=== PATIENT | male | born 1980 | race African-American/Black ===

== ENCOUNTER 2017-02-19 20:02 | Emergency (ER) | payer MEDICAID, OTHER ==
[~2017-02-19] VITALS: Ht 175.3 cm; Wt 72.6 kg
[2017-02-19] MEDS ORDERED: SODIUM CHLORIDE 0.9% 1,000 ML IVB ONE (20:32)
[2017-02-19 21:22] LABS: Urine Bilirubin Negative (Negative); Urine Blood Negative /uL (Negative); Urine Color Yellow (Yellow); Urine Glucose Normal (Normal); Urine Ketone Negative (Negative); Urine Mucus FEW (None Seen); Urine Nitrite Negative (Negative); Urine RBC <1 /hpf (0 - 3); Urine Urobilinogen Normal (Negative)
[2017-02-19 21:47] LABS: Basophils # (auto) 0.1 uL; Basophils % (auto) 1.4 % (0.0-2.0); Eosinophils # (auto) 0.5 uL; Eosinophils % (auto) 4.8 % (0.0-7.0); Hematocrit 42.7 % (41.0-53.0); Hemoglobin 13.8 g/dL (13.5-17.5); Lymphocytes # (auto) 2.3 uL; Mean Corpuscular Hemoglobin 30.2 pg (28.0-32.0); Mean Corpuscular Hgb Conc. 32.2 g/dL (32.0-36.0); Mean Corpuscular Volume 93.8 fL (80.0-100.0); Mean Platelet Volume 8.2 fL (6.9-10.8); Monocytes # (auto) 1.1 uL; Monocytes % (auto) 9.9 % (0.0-12.0); Neutrophils # (auto) 6.8 uL; Neutrophils % (auto) 62.9 % (37.0-80.0); Nucleated Red Blood Cells % 0.3 %; Platelet Count (auto) 210 10^3/uL (140-450); Red Cell Distribution Width 12.8 % (11.8-14.3); White Blood Cell 10.8 10^3/uL (4.4-10.8)
[2017-02-19 21:58] LABS: Albumin 3.5 g/dL (3.4-5.0); Alkaline Phosphatase 69 U/L (45-117); Anion Gap 9 (5-15); Aspartate Aminotransferase 18 U/L (15-37); BUN/Creatinine Ratio 15.9; Bilirubin, Total 0.6 mg/dL (0.2-1.0); Blood Urea Nitrogen 13 mg/dL (7-18); Carbon Dioxide 22 mmol/L (21-32); Chloride 111 mmol/L (98-107); GFR African American 135 mL/min; GFR Non-African American 112 mL/min; Glucose 78 mg/dL (74-106); Magnesium 2.5 mg/dL (1.6-2.6); Potassium 3.5 mmol/L (3.5-5.1); Sodium 142 mmol/L (136-145); Total Protein 6.7 g/dL (6.4-8.2)
[2017-02-19 22:28] LABS: Acetaminophen < 2.0 ug/mL (10-30); Salicylate < 1.7 mg/dL (2.8-20.0)
[2017-02-20 01:52] VITALS: BP 97/61
== END 2017-02-20 03:53 | disposition left against medical advice (07) ==
LOC: EDBD 20:02 → ER 20:17
DX: F32.9 Major depressive disorder, single episode, unspecified (principal); R45.851 Suicidal ideations; F12.10 Cannabis abuse, uncomplicated
CPT/HCPCS: 36415; 80053; 80307; 80320; 80329; 81001; 83735; 85025; 93005; 96360; 99285; J7030

== ENCOUNTER 2023-11-01 11:38 | Emergency (ER) | payer OTHER ==
[~2023-11-01] VITALS: Ht 180.3 cm; Wt 65.5 kg
[~2023-11-01 11:38] MED LIST: CYCL-837 PO; LIDO5DIS21 TOP; MELO7.5T7 PO
[2023-11-01 12:05] VITALS: BP 93/71; PULSE 95; RESP 14; O2SAT 98
== END 2023-11-01 12:58 | disposition home or self-care (01) ==
LOC: ER 11:38
DX: S64.02XA Injury of ulnar nerve at wrist and hand level of left arm, initial encounter (principal); F32.9 Major depressive disorder, single episode, unspecified; Z79.899 Other long term (current) drug therapy; X58.XXXA Exposure to other specified factors, initial encounter; Y93.89 Activity, other specified; Y92.89 Other specified places as the place of occurrence of the external cause; Y99.8 Other external cause status

== ENCOUNTER 2024-08-29 11:31 | Emergency (ER) | payer OTHER ==
[~2024-08-29] VITALS: Ht 180.3 cm; Wt 66.2 kg
[2024-08-29 12:14] VITALS: BP 97/62; PULSE 82; RESP 20; TEMP 97.6; O2SAT 98
--- NOTE | 2024-08-29 12:52 | ED.PDOC ---
History of Present Illness HPI Comments 43 y/o M, with PMHx of asthma presents to the ED for CC of s/p exposure. 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 Following exposure, patient endorses feeling short of breath. Patient denies nausea, vomiting, headache, epistaxis, or blurred vision. No other symptoms or modifying factors present at this time. Chief Complaint: Post Exposure Time Seen by MD: 12:45 Primary Care Provider: unknown Reviewed Notes: Nurses Notes, Medications, Allergies Allergies: Coded Allergies: NO KNOWN ALLERGIES (Unverified , 02/19/17) Home Meds Active Scripts Amoxicillin Trihydrate (Amoxicillin) 500 Mg Tab, 1 TAB PO TID for 7 Days, #21 TAB Prov:MARIJA KATZ MD 08/29/24 Prednisone (Prednisone) 10 Mg Tab, 10 MG PO BS for 7 Days, #7 MG Prov:MARIJA KATZ MD 08/29/24 Meloxicam (Meloxicam) 7.5 Mg Tab, 1 TAB PO DAILYP PRN for 30 Days, #30 TAB 0 Refills Prov:DEANA TOLEDO NP 11/01/23 Lidocaine (LIDODERM 5% TOPICAL PATCH) 1 Patch Ph, 1 PATCH TOP DAILY for 30 Days, #30 PATCH 0 Refills Prov:DEANA TOLEDO NP 09/07/23 Cyclobenzaprine Hcl (Cyclobenzaprine Hcl) 5 Mg Tab, 1 TAB PO QHSP PRN for 30 Days, #30 TAB 0 Refills Prov:DEANA TOLEDO NP 09/07/23 Meloxicam (Meloxicam) 7.5 Mg Tab, 1 TAB PO DAILYP PRN for 30 Days, #30 TAB 0 Refills Prov:DEANA TOLEDO NP 09/07/23 Information Source: Patient Mode of Arrival: Ambulatory Severity: Moderate Timing: Minutes Duration: Since onset Prehospital treatment: None Past Medical History PAST MEDICAL HISTORY: Asthma, Depression Surgical History: Denies all surgeries Family History Family History: Unknown Social History Smoker: Cigarettes Alcohol: Denies ETOH Use Drugs: Marijuana Lives In: Home Constitutional: denies: chills, diaphoresis, fatigue, fever, malaise, sweats, weakness, others EENTM: denies: blurred vision, double vision, ear bleeding, ear discharge, ear drainage, ear pain, ear ringing, eye pain, eye redness, hearing loss, mouth pain, mouth swelling, nasal discharge, nose bleeding, nose congestion, nose pain, photophobia, tearing, throat pain, throat swelling, voice changes, others Respiratory: reports: shortness of breath; denies: cough, hemoptysis, orthopnea, SOB at rest, SOB with excertion, stridor, wheezing, others Cardiovascular: denies: chest pain, dizzy spells, diaphoresis, Dyspnea on exertion, edema, irregular heart beat, left arm pain, lightheadedness, palpitations, PND, syncope, others Gastrointestinal: denies: abdomen distended, abdominal pain, blood streaked bowels, constipated, diarrhea, dysphagia, difficulty swallowing, hematemesis, melena, nausea, poor appetite, poor fluid intake, rectal bleeding, rectal pain, vomiting, others Genitourinary: denies: burning, dysuria, flank pain, frequency, hematuria, incontinence, penile discharge, penile sore, pain, testicle pain, testicle swelling, urgency, others Neurological: denies: dizziness, fainting, headache, left sided numbness, left sided weakness, numbness, paresthesia, pre-existing deficit, right sided numbness, right sided weakness, seizure, speech problems, tingling, tremors, weakness, others Musculoskeletal: denies: back pain, gout, joint pain, joint swelling, muscle pain, muscle stiffness, neck pain, others Integumetry: denies: bruises, change in color, change in hair/nails, dryness, laceration, lesions, lumps, rash, wounds, others Allergic/Immunocompromised: denies: Difficulty Healing, Frequent Infections, Hives, Itching, others Hematologic/Lymphatic: denies: anemia, blood clots, easy bleeding, easy bruising, swollen glands, others Endocrine: denies: excessive hunger, excessive sweating, excessive thirst, excessive urination, flushing, intolerance to cold, intolerance to heat, unexplained weight gain, unexplained weight loss, others Psychiatric: denies: anxiety, bipolar disorder, depression, hopeless, panic disorder, schizophrenia, sleepless, suicidal, others All Other Systems: Reviewed and Negative Physical Exam General Appearance: Moderate Distress HEENT: Normal ENT Inspection, Pharynx Normal, TMs Normal Neck: Full Range of Motion, Non-Tender, Normal, Normal Inspection Respiratory: Chest Non-Tender, Lungs Clear, No Accessory Muscle Use, No Respiratory Distress, Normal Breath Sounds Cardiovascular: No Edema, No JVD, No Murmur, No Gallop, Normal Peripheral Pulses, Regular Rate/Rhythm Breast Exam: Deferred Gastrointestinal: No Organomegaly, Non Tender, No Pulsatile Mass, Normal Bowel Sounds, Soft Genitalia: Deferred Pelvic: Deferred Rectal: Deferred Extremities: No calf tenderness, Normal capillary refill, Normal inspection, Normal range of motion, Non-tender, No pedal edema Musculoskeletal : Apperance: Normal Neurologic: Alert, tablet repair II-XII nml as Tested, No Motor Deficits, Normal Affect, Normal Mood, No Sensory Deficits Cerebellar Function: Normal Reflexes: Normal Skin: Dry, Normal Color, Warm Peripheral Pulses: 3+ Radial (R), 3+ Radial (L) Lymphatic: No Adenopathy Was a procedure done? Was a procedure done?: No Differential Dx Considerations may include: CHEMICAL INHALATION X-Ray, Labs, Meds, VS Vital Signs Date Time Temp Pulse Resp B/P (MAP) Pulse Ox O2 Delivery O2 Flow Rate FiO2 08/29/24 12:14 97.6 82 20 97/62 (74) 98 97.6 [place] [address] Ph: [phone] DIAGNOSTIC IMAGING Diagnostic Imaging Report : [id number] Signed PATIENT: KAYLAH CHRISTINA ACCT: [id number] UNIT: [id number] : 1980 LOC: ER ROOM / BED: / AGE / SEX: 43 / M ADM STATUS: REG ER SERVICE 1257 ORDERING PHYSICIAN: MARIJA KATZ MD PROCEDURE(s): CXRP - CHEST PORTABLE REASON: sob ORDER NUMBER(s): [id number], ACCESSION NUMBER(s): [id number] EXAM: XY CHEST PORTABLE Indication: sob Technique: Single frontal view of the chest was obtained Comparison: None FINDINGS: Lines and Tubes: None Lungs: No focal consolidation. Pleura: No effusion. No pneumothorax. Cardiomediastinal contours: Unremarkable Bones: No acute osseous abnormality. IMPRESSION: No acute cardiopulmonary disease. ATED BY: LAURA SANTILLAN MD DICTATED DATE/TIME: 08/29/24 1332 SIGNED BY: LAURA SANTILLAN MD SIGNED DATE/TIME: 08/29/24 1332 CC: Patient alert. Complaining of shortness a breath. Chest x-ray reviewed does not show any acute changes. Vitals stable. Answering questions. Possible anxiety related. No leg swelling. Saturation pristine on room air. Heart rate within normal limits. Was given prescription of prednisolone amoxicillin antibiotic. Continues to smoke cigarettes. Counseled patient on effects of smoking cigarettes for 15 minutes. Explained to the patient about his diagnosis. Was told to follow up with his primary care physician. Was told to come back if there is any problem. Time of 1ST Reevaluation: 13:15 Reevaluation 1ST: Unchanged Patient Education/Counseling: Diagnosis, Treatment Family Education/Counseling: No Family Present Departure 1 Departure Time of Disposition: 14:30 Impression: Primary Impression: Pneumonitis Disposition: 01 HOME / SELF CARE / HOMELESS Condition: Good e-Prescriptions Amoxicillin Trihydrate (Amoxicillin) 500 Mg Tab 1 TAB PO TID for 7 Days, #21 TAB Prov: MARIJA KATZ MD 08/29/24 Prednisone (Prednisone) 10 Mg Tab 10 MG PO BS for 7 Days, #7 MG Prov: MARIJA KATZ MD 08/29/24 Discharged With: Self Critical Care Note Critical Care Time?: No Stability Stability form required: No Heart Score Heart Score: Heart Score Response (Comments) Value History N/A 0 EKG N/A 0 Age N/A 0 Risk Factors N/A 0 Troponin N/A 0 Total 0 I personally scribed for MARIJA KATZ MD ([email or web address]) on 08/29/24 at 12:52. Electronically submitted by Shahrzad Loco ([email or web address]). I personally scribed for MARIJA KATZ MD ([email or web address]) on 08/29/24 at 13:49. Electronically submitted by Shahrzad Loco ([email or web address]). MARIJA KATZ MD August 29, 2024 12:52
--- NOTE | 2024-08-29 13:34 | DVH ---
EXAM: XY CHEST PORTABLE Indication: sob Technique: Single frontal view of the chest was obtained Comparison: None FINDINGS: Lines and Tubes: None Lungs: No focal consolidation. Pleura: No effusion. No pneumothorax. Cardiomediastinal contours: Unremarkable Bones: No acute osseous abnormality. IMPRESSION: No acute cardiopulmonary disease.
[2024-08-29] MEDS ORDERED: AMOX500T3 PO (14:31)
[2024-08-29] MEDS ORDERED: PRED10TA PO (14:31)
== END 2024-08-29 15:58 | disposition home or self-care (01) ==
LOC: ER 11:36
DX: J98.4 Other disorders of lung (principal); J45.909 Unspecified asthma, uncomplicated; F32.A Depression, unspecified; F17.210 Nicotine dependence, cigarettes, uncomplicated; F19.90 Other psychoactive substance use, unspecified, uncomplicated; Z79.899 Other long term (current) drug therapy
CPT/HCPCS: 71045; 99407

== ENCOUNTER 2024-09-24 12:23 | Emergency (ER) | payer OTHER ==
[~2024-09-24] VITALS: Ht 180.3 cm; Wt 68.0 kg
[~2024-09-24 12:23] MED LIST changes: +AMOX500T3 PO; +PRED10TA PO
[2024-09-24] MEDS ORDERED: CEFD300C2 PO (13:06)
[2024-09-24] MEDS ORDERED: IBU600T PO (13:06)
--- NOTE | 2024-09-24 13:06 | ED.PDOC ---
Eye-HPI HPI Comments This 43-year-old male presented to the urgent care complaining of tooth ache ache , last upper molars. Chief Complaint: Tooth Pain Time Seen by MD: 12:27 Primary Care Provider: RUSS Clarke Notes: Nurses Notes, Medications, Allergies Allergies: Coded Allergies: NO KNOWN ALLERGIES (Unverified , 02/19/17) Home Meds Active Scripts Amoxicillin Trihydrate (Amoxicillin) 500 Mg Tab, 1 TAB PO TID for 7 Days, #21 TAB Prov:MARIJA KATZ MD 08/29/24 Prednisone (Prednisone) 10 Mg Tab, 10 MG PO BS for 7 Days, #7 MG Prov:MARIJA KATZ MD 08/29/24 Meloxicam (Meloxicam) 7.5 Mg Tab, 1 TAB PO DAILYP PRN for 30 Days, #30 TAB 0 Refills Prov:DEANA TOLEDO NP 11/01/23 Lidocaine (LIDODERM 5% TOPICAL PATCH) 1 Patch Ph, 1 PATCH TOP DAILY for 30 Days, #30 PATCH 0 Refills Prov:DEANA TOLEDO NP 09/07/23 Cyclobenzaprine Hcl (Cyclobenzaprine Hcl) 5 Mg Tab, 1 TAB PO QHSP PRN for 30 Days, #30 TAB 0 Refills Prov:DEANA TOLEDO NP 09/07/23 Meloxicam (Meloxicam) 7.5 Mg Tab, 1 TAB PO DAILYP PRN for 30 Days, #30 TAB 0 Refills Prov:DEANA TOLEDO NP 09/07/23 Information Source: Patient Mode of Arrival: Ambulatory Timing: Days Quality: Pain Mouth Location: Right, Upper, Tooth/Teeth, Gingiva Mouth: Right, Upper, Molar, Tender, Carious, Normal Onset: Spontaneous Throat Exposed to: None History of: None Last Tetanus: UTD Modifying factors: Heat, Cold, Chewing Associated signs and symptoms: None Past Medical History PAST MEDICAL HISTORY: Asthma, Depression Surgical History: Denies all surgeries Family History Family History: Unknown Social History Smoker: Cigarettes Alcohol: Denies ETOH Use, Occasionally Drugs: Marijuana Lives In: Home Constitutional: denies: chills, diaphoresis, fatigue, fever, malaise, sweats, weakness, others EENTM: reports: mouth pain, others (The right last molars upper); denies: lesa rred vision, double vision, ear bleeding, ear discharge, ear drainage, ear pain, ear ringing, eye pain, eye redness, hearing loss, mouth swelling, nasal discharge, nose bleeding, nose congestion, nose pain, photophobia, tearing, throat pain, throat swelling, voice changes Respiratory: denies: cough, hemoptysis, orthopnea, SOB at rest, shortness of breath, SOB with excertion, stridor, wheezing, others Cardiovascular: denies: chest pain, dizzy spells, diaphoresis, Dyspnea on exertion, edema, irregular heart beat, left arm pain, lightheadedness, palpitations, PND, syncope, others Gastrointestinal: denies: abdomen distended, abdominal pain, blood streaked bowels, constipated, diarrhea, dysphagia, difficulty swallowing, hematemesis, melena, nausea, poor appetite, poor fluid intake, rectal bleeding, rectal pain, vomiting, others Genitourinary: denies: burning, dysuria, flank pain, frequency, hematuria, incontinence, penile discharge, penile sore, pain, testicle pain, testicle swelling, urgency, others Neurological: denies: dizziness, fainting, headache, left sided numbness, left sided weakness, numbness, paresthesia, pre-existing deficit, right sided numbnes s, right sided weakness, seizure, speech problems, tingling, tremors, weakness, others Musculoskeletal: denies: back pain, gout, joint pain, joint swelling, muscle pain, muscle stiffness, neck pain, others Integumetry: denies: bruises, change in color, change in hair/nails, dryness, laceration, lesions, lumps, rash, wounds, others Allergic/Immunocompromised: denies: Difficulty Healing, Frequent Infections, Hives, Itching, others Hematologic/Lymphatic: denies: anemia, blood clots, easy bleeding, easy bruising, swollen glands, others Endocrine: denies: excessive hunger, excessive sweating, excessive thirst, excessive urination, flushing, intolerance to cold, intolerance to heat, unexplained weight gain, unexplained weight loss, others Psychiatric: denies: anxiety, bipolar disorder, depression, hopeless, panic disorder, schizophrenia, sleepless, suicidal, others All Other Systems: Reviewed and Negative Physical Exam General Appearance: Moderate Distress, Thin HEENT: Normal ENT Inspection, PERRL/EOMI, Other (Tooth aches right upper molars with some caries) Neck: Full Range of Motion, Non-Tender, Normal, Normal Inspection Respiratory: Chest Non-Tender, Lungs Clear, No Accessory Muscle Use, No Respiratory Distress, Normal Breath Sounds Cardiovascular: No Edema, No JVD, No Murmur, No Gallop, Normal Peripheral Pulses, Regular Rate/Rhythm Breast Exam: Deferred Gastrointestinal: No Organomegaly, Non Tender, No Pulsatile Mass, Normal Bowel Sounds, Soft Genitalia: Deferred Pelvic: Deferred Rectal: Deferred Extremities: No calf tenderness, Normal capillary refill, Normal inspection, Normal range of motion, Non-tender, No pedal edema Neurologic: Alert, pre sales technical engineer II-XII nml as Tested, No Motor Deficits, Normal Affect, Normal Mood, No Sensory Deficits Cerebellar Function: Normal Reflexes: Normal Skin: Dry, Normal Color, Warm Peripheral Pulses: 1+ carotid (R), 1+ carotid (L) Lymphatic: No Adenopathy Was a procedure done? Was a procedure done?: No EENT DIFF Eye: N/A Ear: N/A Nose: N/A Mouth: Other (Pain and facial swelling to the last upper molar on the right side) Sore Throat: N/A X-Ray, Labs, Meds, VS Vital Signs Date Time Temp Pulse Resp B/P (MAP) Pulse Ox O2 Delivery O2 Flow Rate FiO2 09/24/24 12:27 99.0 96 18 97/83 (88) 98 99.0 Time of 1ST Reevaluation: 12:35 Reevaluation 1ST: Unchanged Time of 2ND Reevaluation: 13:02 Reevaluation 2ND: Unchanged Consultation: PCP, Other (Dental care) Patient Education/Counseling: Diagnosis, Treatment, Prognosis, Need For Follow Up Family Education/Counseling: Diagnosis, Treatment, Prognosis, Need For Follow Up, No Family Present SEPSIS Sepsis Screen Date sepsis recognized/suspect: Sep 24, 2024 Time Sepsis recognized/suspect: 1227 Recent Procedure: No On Antibiotic Therapy: No Respiratory Rate >20: No Heart Rate >90: Yes Temp<36 C (96.8 F) or >38.3 C: No SBP <90 or MAP <65 mmHG: No New Acute Mental Status Change: No Is the patient on CPAP, BIPAP,: No Vital Signs Date Time Temp Pulse Resp B/P (MAP) Pulse Ox O2 Delivery O2 Flow Rate FiO2 09/24/24 12:27 99.0 96 18 97/83 (88) 98 99.0 Departure 1 Departure Time of Disposition: 13:02 Impression: Primary Impression: Tooth pain Disposition: 01 HOME / SELF CARE / HOMELESS Condition: Fair Additional Instructions: Mouthwash with peroxide Follow up with your dentist e-Prescriptions Ibuprofen Micronized (MOTRIN TABLET) 600 Mg Tb 600 MG PO QID PRN for 10 Days, #40 TAB *Black box warning-NSAIDS can increase risk of KS & hypertension, GI irritation, ulceration, bleed, perferation. Do not use post cardiac surgery. Use short duration/lowest effective dose. Prov: CLIFFORD SARAH MD 09/24/24 Cefdinir (Cefdinir) 300 Mg Cap 1 CAP PO BID for 10 Days, #20 CAP Prov: CLIFFORD SARAH MD 09/24/24 Discharged With: Self Critical Care Note Critical Care Time?: No Stability Stability form required: No Heart Score Heart Score: Heart Score Response (Comments) Value History N/A 0 EKG N/A 0 Age <45 0 Risk Factors No known risk factors 0 Troponin N/A 0 Total 0 CLIFFORD SARAH MD Sep 24, 2024 13:06
[2024-09-24 13:13] VITALS: BP 112/88; PULSE 96; RESP 16; TEMP 98.7; O2SAT 99
== END 2024-09-24 13:23 | disposition home or self-care (01) ==
LOC: ER 12:23
DX: K02.9 Dental caries, unspecified (principal); J45.909 Unspecified asthma, uncomplicated; F17.210 Nicotine dependence, cigarettes, uncomplicated; F12.90 Cannabis use, unspecified, uncomplicated; F32.A Depression, unspecified; Z79.899 Other long term (current) drug therapy